=== PATIENT | female | born 1960 | race Caucasian/White ===

== ENCOUNTER 2016-11-27 14:35 | Emergency (ER) | payer SELFPAY ==
[~2016-11-27] VITALS: Ht 152.4 cm; Wt 66.0 kg
[~2016-11-27 14:35] MED LIST: LEVO.075 PO; LORTA5 PO; SOMA350T PO; ZOFR4TAB3 PO
[2016-11-27 14:40] VITALS: BP 124/86; PULSE 85; RESP 18; TEMP 97.7; O2SAT 98
--- NOTE | 2016-11-27 14:49 | PD ---
HPI Chief Complaint: ENT Complaint Time Seen by Provider: 14:47 Travel History International Travel<30 days: No Contact w/Intl Traveler<30days: No Traveled to known affect area: No History of Present Illness HPI 56 y/f presents to the ED for evaluation of acute on chronic ear/ jaw pain since Monday. States that she went to her PCP and they placed her on amoxicillin as a trial. States now her pain is worse and lortab and soma are not reducing her pain. States she has constant, severe, non radiating pain in the angle of her right jaw extending into her neck. Exquisite tenderness to the jaw, difficulty opening mouth, no clicking or popping. She does have a history of TMJ for multiple years and has seen specialists per patient. However states the worst pain is ever been. Pt has no personal history of cancer, denies fever , chills, chest pain, shortness of breath. PFSH Past Medical History Blood Disorders: No Anxiety: No Depression: No Cancer: No Cardiovascular Problems: No Diabetes: No Diminished Hearing: No Endocrine: No Gastrointestinal Disorders: No Genitourinary: No Immune Disorder: No Implanted Vascular Access Dvce: No Musculoskeletal: Yes (TMJ MYOFACIAL PAIN) Neurologic: No Psychiatric: No Reproductive: No Respiratory: No Thyroid Disease: Yes (THYROIDECTOMY) : 2 Para: 2 Tubal Ligation: Yes Past Surgical History Section: No Gynecologic Surgery: Yes (TOTAL HYSTERECTOMY ) Hysterectomy: Yes Pacemaker: No Other Surgery: Yes (REMOVAL OF THYROID 2005) Social History Alcohol Use: No Tobacco Use: No Substance Use: No Allergies-Medications (Allergen,Severity, Reaction): Coded Allergies: No Known Allergies (Verified , 11/27/16) Reported Meds & Prescriptions Reported Meds & Active Scripts Active Medrol Dosepak (Methylprednisolone) 4 Mg Dspk 4 Mg PO DIRECTED Per Pharmacist direction Reported Soma (Carisoprodol) 350 Mg Tab 350 Mg PO QID PRN Lortab (Hydrocodone-Acetaminophen) 5-325 Mg Tab 1 Tab PO Q6H PRN Synthroid (Levothyroxine Sodium) 125 Mcg Tab 125 Mcg PO DAILY Review of Systems Except as stated in HPI: all other systems reviewed are Neg Physical Exam Narrative GENERAL: Well-nourished, well-developed patient. SKIN: Focused skin assessment warm/dry. HEAD: Normocephalic. EYES: No scleral icterus. No injection or drainage. MOUTH: Mucous membranes moist, no lesions, tongue and gums appear normal. No tenderness to palpation of the gingiva or teeth. Unable to elicit tenderness within the oral cavity. THROAT: No pharyngeal injection, exudates, or tonsillar hypertrophy. Airway is patent. Bilateral Peritonsillar area appears irritated, nonbulging. NECK: Supple, trachea midline. No JVD or lymphadenopathy. Left neck with muscle spasms to the superior portion of the SCMs. Extension of induration from the ankle of the jaw and 2-3cm distal into the neck. Exquisite TTP. No meningismus CARDIOVASCULAR: Regular rate and rhythm without murmurs, gallops, or rubs. RESPIRATORY: Breath sounds equal bilaterally. No accessory muscle use. GASTROINTESTINAL: Abdomen soft, non-tender, nondistended. MUSCULOSKELETAL: No cyanosis, or edema. BACK: Nontender without obvious deformity. No CVA tenderness. Data Data Last Documented VS Vital Signs Date Time Temp Pulse Resp B/P (MAP) Pulse Ox O2 Delivery O2 Flow Rate FiO2 11/27/16 14:40 97.7 85 18 124/86 (99) [address] Soft Tiss Neck W Iv Cont (11/27/16 ) Acetamin-Hydrocod 325-7.5 Mg (Philipp 7.5 (11/27/16 15:30) Iohexol 350 Inj (Omnipaque 350 Inj) (11/27/16 15:43) Methylprednisolone So Succ Inj (Solumedr (11/27/16 16:30) Ed Discharge Order (11/27/16 16:26) Methylprednisolone So Succ Inj (Solumedr (11/27/16 16:45) MDM Medical Decision Making Medical Screen Exam Complete: Yes Emergency Medical Condition: Yes Differential Diagnosis TMJ vs trigeminal neuralgia vs occipital neuralgia vs AOM vs mass Narrative Course 56 y f presents to the ED for left jaw pain and swelling for 1 week. PCP Rx amoxicillin as a trial however, pain and swelling has increased. Pain is severe , constant, and worse with movement of the head and opening of the jaw. Pt is on Soma and Lortab for this pain but has not resolved her pain. Physical exam demonstrates enlarged mandible proximally 2 cm x 3 cm area tender to palpation. No ecchymosis, erythema. Imaging study demonstrated no acute process or reason for the pain. Patient given hydrocodone 7.5-325 for her pain while in the ED Solu-Medrol for inflammation. Medrol Dosepak for home Advised patient to return if she has difficulty breathing, worsening pain or swelling. Follow-up with ENT and family doctor within 2 days Diagnosis Primary Impression: TMJ arthralgia Qualified Codes: M26.622 - Arthralgia of left temporomandibular joint Referrals: Ear / Nose / Throat Specialist Orthopedist Additional Instructions: Follow up with your PCP for treatment and evaluation Monday. Scripts Methylprednisolone Dosepak (Medrol Dosepak) 4 Mg Dspk 4 MG PO DIRECTED, #1 DSPK 0 Refills Per Pharmacist direction Prov: Argelia Rock MD 11/27/16 Disposition: 01 DISCHARGE HOME Condition: Stable Carmelita Garcia Nov 27, 2016 14:49
[2016-11-27] MEDS ORDERED: HYDR-3533 PO (14:52)
[2016-11-27] MEDS ORDERED: SOMA350T PO (14:52)
[2016-11-27] MEDS ORDERED: LEVO.125 PO (14:52)
[2016-11-27] MEDS ORDERED: ACETAMINOPHEN/HYDROcodone 325 MG/7.5 MG TAB PO ONE (15:30)
[2016-11-27] MEDS ORDERED: IOHEXOL 350 MG/ML 10 ML VIAL (for RAD DIAG) IVCONTRAST ONE (15:43)
--- NOTE | 2016-11-27 16:10 | RADRPT ---
EXAM DATE/TIME: 11/27/2016 15:33 [facility] COMPARISON: No previous studies available for comparison. INDICATIONS : Left jaw pain radiating down neck. No improvement with antibiotics. IV CONTRAST: 85 cc Omnipaque 350 (iohexol) IV RADIATION DOSE: 13.23 CTDIvol (mGy) MEDICAL HISTORY : TMJ myofacial pain. SURGICAL HISTORY : Thyroidectomy. Hysterectomy. ENCOUNTER: Initial ACUITY: 4 - 6 days PAIN SCALE: 9/10 LOCATION: Left facial neck TECHNIQUE: Volumetric scanning of the neck was performed. Using automated exposure control and adjustment of th e mA and/or kV according to patient size, radiation dose was kept as low as reasonably achievable to obtain optimal diagnostic quality images. DICOM format image data is available electronically for r eview and comparison. FINDINGS: NASOPHARYNX: The nasopharyngeal airway has a normal configuration. No mucosal thickening or mass is seen. OROPHARYNX: The intrinsic muscles of the tongue are symmetric. The tonsillar pillars are intact. Small punctate calcifications are seen involving the palatin tonsils bilaterally. More abundant on the left. No mass or significant enlargement of the tonsils. The prevertebral soft tissues are not thickened. LARYNX: The supraglottic, glottic, and infraglottic structures are intact. PARAPHARYNGEAL: The parapharyngeal space is intact. SALIVARY GLANDS: The parotid and submandibular glands are intact. LYMPH NODES: No enlarged or necrotic-appearing nodes. THYROID: Homogeneous enhancement without evidence of nodule. BONES: Unremarkable. CONCLUSION: 1. No acute abnormality. Vidal Gilbert Jr., MD on November 27, 2016 at 16:01 Board Certified Radiologist. This report was verified electronically.
[2016-11-27] MEDS ORDERED: MEDR4PAK PO (16:25)
[2016-11-27] MEDS ORDERED: methylPREDNISolone SOD SUCC 125 MG/2 ML VIAL IM ONE (16:30)
[2016-11-27 16:38] VITALS: RESP 16
[2016-11-27] MEDS ORDERED: methylPREDNISolone SOD SUCC 125 MG/2 ML VIAL IV PUSH ONE (16:45)
== END 2016-11-27 16:43 | disposition home or self-care (01) ==
LOC: PHEFT 14:35
DX: M26.622 Arthralgia of left temporomandibular joint (principal)
CPT/HCPCS: 70491; 96374; 99285; J2930; Q9967